=== PATIENT | female | born 1965 ===

== ENCOUNTER → 2023-07-02 | Outpatient (CLI) | payer OTHER ==
--- NOTE | 2023-07-02 11:18 | XR ---
EXAMINATION TYPE: XR chest 2V DATE OF EXAM: 07/02/2023 COMPARISON: NONE TECHNIQUE: PA and lateral views submitted. HISTORY: Preop FINDINGS: The lungs are clear and there is no pneumothorax, pleural effusion, or focal pneumonia. Heart size normal and no overt failure. Osseous structures demonstrate hypertrophic and degenerative changes of the spine. IMPRESSION: 1. No acute process.
[2023-07-02 15:51] LABS: Basophils # (A) 0.06 X 10*3/uL (0.00-0.10); Basophils % (A) 0.7 %; Eosinophils # (A) 1.32 X 10*3/uL (0.04-0.35); Eosinophils % (A) 16.3 %; HCT 47.2 % (37.2-46.3); HGB 15.5 g/dL (12.0-15.0); Lymphocytes # (A) 2.56 X 10*3/uL (0.90-5.00); Lymphocytes % (A) 31.7 %; MCH 29.3 pg (27.0-32.0); MCHC 32.8 g/dL (32.0-37.0); MCV 89.2 FL (80.0-97.0); Mean Platelet Volume 11.2 FL (9.5-12.2); Monocytes # (A) 0.51 X 10*3/uL (0.20-1.00); Monocytes % (A) 6.3 %; NRBC Per 100 WBC 0 X 10*3/uL (0.00-0.01); Neutrophils # (A) 3.61 X 10*3/uL (1.80-7.70); Neutrophils % (A) 44.8 %; Platelet Count 268 X 10*3/uL (140-440); RBC 5.29 X 10*6/uL (4.10-5.20); RDW 14.3 % (11.5-14.5); WBC 8.08 X 10*3/uL (4.50-10.00)
[2023-07-02 15:56] LABS: BUN/Creat Ratio 11.38 Ratio (12.00-20.00); Blood Urea Nitrogen 9.1 mg/dL (9.0-27.0); Calcium 9.9 mg/dL (8.7-10.3); Carbon Dioxide 25.7 mmol/L (21.6-31.8); Chloride 104 mmol/L (96-109); Glucose 92 mg/dL (70-110); Potassium 4.5 mmol/L (3.5-5.5); Sodium 143 mmol/L (135-145)
[2023-07-02 16:29] LABS: INR <0.93 sec (0.93-1.11); Prothrombin Time 9.8 sec (9.9-11.9)
== END | disposition home or self-care (01) ==
LOC: LABPAT 08:51
PROVIDERS: ATTEND Orthopaedic Surgery
DX: Z01.818 Encounter for other preprocedural examination (principal); M16.11 Unilateral primary osteoarthritis, right hip; Z22.322 Carrier or suspected carrier of Methicillin resistant Staphylococcus aureus
CPT/HCPCS: 36415; 71046; 80048; 85025; 85610; 87070; 93005

== ENCOUNTER → 2023-07-25 | Outpatient (CLI) | payer OTHER ==
[2023-07-25 23:36] LABS: Basophils # (A) 0.07 X 10*3/uL (0.00-0.10); Basophils % (A) 0.8 %; Eosinophils # (A) 1.07 X 10*3/uL (0.04-0.35); Eosinophils % (A) 11.8 %; HCT 46.8 % (37.2-46.3); HGB 15.3 g/dL (12.0-15.0); Lymphocytes # (A) 2.42 X 10*3/uL (0.90-5.00); Lymphocytes % (A) 26.7 %; MCH 28.6 pg (27.0-32.0); MCHC 32.7 g/dL (32.0-37.0); MCV 87.5 FL (80.0-97.0); Mean Platelet Volume 11.5 FL (9.5-12.2); Monocytes # (A) 0.72 X 10*3/uL (0.20-1.00); Monocytes % (A) 7.9 %; NRBC Per 100 WBC 0 X 10*3/uL (0.00-0.01); Neutrophils # (A) 4.77 X 10*3/uL (1.80-7.70); Neutrophils % (A) 52.5 %; Platelet Count 293 X 10*3/uL (140-440); RBC 5.35 X 10*6/uL (4.10-5.20); RDW 14.2 % (11.5-14.5); WBC 9.08 X 10*3/uL (4.50-10.00)
[2023-07-26 06:48] LABS: INR 0.93 sec (0.93-1.11); Prothrombin Time 10.1 sec (9.9-11.9)
[2023-07-26 07:25] LABS: BUN/Creat Ratio 10.62 Ratio (12.00-20.00); Blood Urea Nitrogen 8.5 mg/dL (9.0-27.0); Calcium 10.3 mg/dL (8.7-10.3); Carbon Dioxide 23.9 mmol/L (21.6-31.8); Chloride 104 mmol/L (96-109); Glucose 93 mg/dL (70-110); Potassium 4.4 mmol/L (3.5-5.5); Sodium 143 mmol/L (135-145)
== END | disposition home or self-care (01) ==
LOC: LABPAT 09:56
PROVIDERS: ATTEND Orthopaedic Surgery
DX: Z01.812 Encounter for preprocedural laboratory examination (principal); Z22.322 Carrier or suspected carrier of Methicillin resistant Staphylococcus aureus; M16.11 Unilateral primary osteoarthritis, right hip
CPT/HCPCS: 80048; 85025; 85610

== ENCOUNTER 2023-07-28 08:29 | Observation (INO) | payer OTHER ==
[2023-07-21 12:57] VITALS: BMI 28.3
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
[~2023-07-28 08:29] MED LIST: MIDAZOLAM 2 MG/2 ML VIAL IV PRN; TRANEXAMIC 1,000 MG/100ML-NACL 1,000 MG in SALINE 1 100ML.BAG IVPB PRN
[2023-07-28] MEDS: LACTATED RINGERS 1,000 ML IV SCH (08:46)
[2023-07-28] MEDS ORDERED: ACETAMINOPHEN TAB 500 MG TAB ONE (08:52)
[2023-07-28] MEDS: MIDAZOLAM 2 MG/2 ML VIAL IVP ONE ×2 (09:36)
[2023-07-28] MEDS: fentaNYL (PF) 50 MCG/ML 2 ML AMP IVP ONE (09:36)
--- NOTE | 2023-07-28 09:50 | P.ANPRN ---
Procedure Note - Anesthesia - Nerve Block Performed Right [place] Single Time Out Performed: Yes Date of Procedure: 07/28/23 Procedure Start Time: 09:35 Procedure Stop Time: 09:40 Location of Patient: PreOp Indication: Acute Post-Operative Pain, Analgesia, Requested by Surgeon Sedation Type: Sedate with meaningful contact maintained Preparation: Sterile Prep Position: Supine Catheter: None Needle Types: Pajunk Needle Gauge: 21 Ultrasound used to visualize needle placement: Yes Ultrasound used to observe medication spread: Yes Injectate: 0.5% Ropivacaine (see comment for volume) (Ropiv 20ml+decadron 4mg) Blood Aspirated: No Pain Paresthesia on Injection Noted: No Resistance on Injection: Normal Image Stored and Saved: Yes Events: Uneventful and Well Tolerated
[2023-07-28] MEDS: ACETAMINOPHEN TAB 500 MG TAB PO PRN (09:54)
[2023-07-28] MEDS: MELOXICAM 7.5 MG TAB PO PRN (09:54)
[2023-07-28] MEDS: ONDANSETRON 4 MG/2 ML VIAL IVP ONE (09:54)
[2023-07-28] MEDS: DEXAMETHASONE SOD PHOSPHATE 4 MG/ML 1 ML VIAL IV ONE (09:54)
[2023-07-28] MEDS ORDERED: MIDAZOLAM 2 MG/2 ML VIAL ONE (10:04)
[2023-07-28] MEDS ORDERED: DEXAMETHASONE SOD PHOSPHATE 4 MG/ML 1 ML VIAL ONE (10:04)
[2023-07-28] MEDS ORDERED: ePHEDrine 50 MG/ML 1 ML VIAL ONE (10:04)
[2023-07-28] MEDS ORDERED: LIDOCAINE 1% INJ 10MG/ML (20 ML MDV) ONE (10:04)
[2023-07-28] MEDS ORDERED: ROPIVACAINE 5 MG/ML 30 ML VIAL ONE (10:04)
[2023-07-28] MEDS ORDERED: TRANEXAMIC 1,000 MG/100ML-NACL PREMIX BAG ONE (10:04)
[2023-07-28] MEDS ORDERED: PROPOFOL 10 MG/ML 20 ML VIAL IV ONE (10:04)
[2023-07-28] MEDS ORDERED: KETAMINE HCL IN 0.9 % NACL 50 MG/5 ML SYRINGE ONE (10:04)
--- NOTE | 2023-07-28 10:24 | P.ANPRN ---
Procedure Note - Anesthesia - Epidural/Spinal Spinal Time Out Performed: Yes Date of Procedure: 07/28/23 Procedure Start Time: 10:10 Procedure Stop Time: 10:15 Location of Patient: OR Sedation Type: Sedate with meaningful contact maintained Preparation: Sterile Prep Position: Sitting Catheter: None Needle Guage: 22 Narrative: Bupivacain 11mg Blood Aspirated: No Pain Paresthesia on Injection Noted: No Events: Uneventful and Well Tolerated
[2023-07-28] MEDS: ceFAZolin 1,000 MG in SODIUM CHLORIDE 0.9% 1,000 ML IRRIGATION ONE (10:44)
[2023-07-28] MEDS: LACTATED RINGERS 1,000 ML IV ONE (11:04)
[2023-07-28] MEDS ORDERED: NALOXONE 0.4 MG/ML 1 ML VIAL IV PRN (12:06)
[2023-07-28] MEDS ORDERED: hydrOXYzine pamoate 25 MG CAP PO PRN (12:06)
[2023-07-28] MEDS ORDERED: HYDROmorphone 0.5 MG/0.5 ML SYRINGE IVP PRN (12:06)
[2023-07-28] MEDS ORDERED: MAGNESIUM HYDROXIDE 2,400 MG/30 ML CUP PO PRN (12:06)
--- NOTE | 2023-07-28 12:23 | P.OP ---
Date of Procedure: 07/28/23 Preoperative Diagnosis: Right hip severe osteoarthrosis Postoperative Diagnosis: Same Procedure(s) Performed: Right total hip arthroplastyanterior approach -press-fit Implants: Depuy Corail size 10 standard press-fit collared femoral stem, 36+1.5 ceramic femoral head, 52 mm [place] acetabular shell with neutral polyethylene liner. Anesthesia: regional, spinal Surgeon: Joe Mejia Almond Huller #1: Davis Pizano Estimated Blood Loss (ml): 200 Pathology: none sent Condition: stable Disposition: PACU Indications for Procedure: The patient is a 57-year-old female who presents with progressive right hip pain secondary to osteoporosis despite conservative measures. A discussion of the risks and benefits of operative intervention versus continued conservative measures was made with patient. She opted to proceed with surgery. Operative risks to include infection, neurovascular injury, development of blood clots, fracture, possible leg length discrepancy, possible component loosening/failure and possible need for subsequent procedures was discussed. Informed consent was obtained. Operative Findings: As below Description of Procedure: The patient was brought to the operating room, and after induction of spinal anesthesia was placed supine on the Anjelica table. Positioning was checked with fluoroscopy. The right hip was then prepped and draped in a normal fashion. A 12 cm incision was then made starting 2 fingerbreadths distal and 3 finger breaths posterior to the ASIS in line with the proximal femur. The skin was incised sharply. Subcutaneous tissues were divided sharply. Electrocautery was used for hemostasis. The fascia was split in line with skin incision. The interval between the sartorius and tensor fascia mat was then bluntly developed. The posterior fascia was opened with electrocautery. The lateral circumflex vessels were identified and cauterized prior to sectioning. A retractor was placed along the superior femoral neck as well as the anterior acetabular rim. A wide capsulotomy was performed. The neck cut was then made at a 45 angle to the shaft approximately 1 1/2 cm above the level of the lesser trochanter. The head was extracted. Attention was then paid towards preparing the acetabular. Anterior and posterior retractors were placed. The remaining capsular labral tissue sharply debrided clearly defining the acetabular margins. I began reaming with a 47 mm reamer taking care to initially medialize then reaming at 45 of abduction and 20 of anteversion. Sequential reaming is performed up to 51 mm. A trial to 52 mm acetabular shell was inserted in the same orientation and was fully seated. There was good rim fit and stability. Positioning was checked with fluoroscopy. The final 52 mm acetabular shell was inserted again at 45 of abduction and 20 of anteversion. This was fully seated. There was good rim fit and stability. Again fluoroscopy was used to check the adequacy of placement. A neutral polyethylene liner was gently impacted. Care was taken to avoid any soft tissue interposition. Pulsatile lavage was utilized. Attention was then paid towards preparing the proximal femur. The central region was cleared of soft tissue. A canal finder was used to find the femoral canal. Sequential broaching was performed up to size 10 taking care to lateralize proximally. A calcar mill was used to fashion the medial calcar. There was good rotational stability. A standard neck along with a 36 mm +1.5 head was placed. The hip was gently reduced. Fluoroscopy was used to check the adequacy of positioning along with leg lengths. I felt both were good. The hip was gently dislocated. The trial components were removed. The final size 10 collared standard press-fit femoral stem was inserted parallel to the posterior cortex. This was fully seated and there was good rotational stability. A 36 mm was 1.5 ceramic femoral head was placed. This was gently impacted. The hip was then gently reduced. Final fluoroscopic view showed adequate placement implant along with adventist of leg length. Stability was checked with 80 of external rotation and 60 of extension of the right hip. The wound was irrigated with sterile lavage. The fascia was closed with running 0 Vicryl suture. There was minimal drainage therefore a deep drain was not placed. The second dose of IV TXA was given. The subcutaneous tissues were reapproximated interrupted 2-0 Vicryl sutures. The skin was reapproximated with 3-0 subcuticular strata fix suture. Skin tape and adhesive was applied. A sterile dressing was applied. The patient was then awoken from sedation and transferred to recovery room in good condition. Blood loss was estimated at 200. mL. No complications were incurred. Sponge and needle counts were correct at the end of the case. Davis JOHNSON assisted during the major components is case to include exposure, bone resection, implantation, and closure.
[2023-07-28] MEDS: HYDROmorphone 0.5 MG/0.5 ML SYRINGE IVP PRN (12:31)
--- NOTE | 2023-07-28 12:57 | XR ---
EXAMINATION TYPE: XR Hip Limited RT DATE OF EXAM: 07/28/2023 COMPARISON: NONE HISTORY: Post op TECHNIQUE: One view submitted. FINDINGS: There is postsurgical change compatible hip replacement surgery. IMPRESSION: 1. Postoperative change.
--- NOTE | 2023-07-28 12:58 | XR ---
EXAMINATION TYPE: XR Hip Limited RT DATE OF EXAM: 07/28/2023 COMPARISON: NONE HISTORY: Right anterior hip replacement TECHNIQUE:- 5 view submitted. FINDINGS: There is postsurgical change compatible hip replacement surgery. IMPRESSION: 1. Postoperative change.
--- NOTE | 2023-07-28 13:14 | FL ---
EXAMINATION TYPE: FL guidance operating room DATE OF EXAM: 07/28/2023 HISTORY: Fluoroscopy time Total dose area product (DAP) in uGy*m?, mGy*cm? (or similar): 1.0346 IMPRESSION: 1. Fluoroscopy time.
[2023-07-28] MEDS: SCOPOLAMINE 1 MG/72 HR PATCH TRANSDERM ONE (14:18)
[2023-07-28] MEDS: HYDROmorphone 1 MG/ML 1 ML SYRINGE IVP PRN (14:38)
[2023-07-28] MEDS: HYDROcodone/APAP 5-325MG 1 EACH TAB PO PRN (16:38)
[2023-07-28] MEDS ORDERED: ALPRAZolam 0.5 MG TAB PO PRN (17:33)
--- NOTE | 2023-07-28 17:34 | P.CONS ---
History of Present Illness - Reason for Consult Consult date: 07/28/23 Medical management Requesting physician: Joe Mejia - History of Present Illness History of Presenting Illness: Patient is a 57-year-old female with a past medical history of Raynaud's disease, nicotine dependence, daily cannabis use, anxiety, and osteoarthritis. She is currently admitted under orthopedic surgery team status post elective right total hip arthroplasty secondary to severe osteoarthrosis. Surgical procedure was completed by Dr. Mejia. We have been consulted for medical management throughout hospitalization. Patient seen and fully evaluated in room 472. Family at bedside visiting. Patient appeared very anxious and fidgety. She currently reports pain is the same as it was before her surgery. Patient was educated that there are pain medications available and if they are not helping to please speak up as changes can be made to current medication regimen. Patient denies having any numbness or tingling, denies headache, lightheadedness, dizziness, chest pain, palpitations, shortness of breath, or any other complaints. She denies having postoperative nausea or vomiting. She does report she has not yet urinated in postoperative period. She denies history of DVT or PE. Review of systems: Pertinent positives and negatives as discussed in HPI, a complete review of systems was performed and all other systems are negative. Physical exam: Vital signs reviewed and stable. General: Nontoxic, no distress and appears stated age. Derm: Skin warm and dry, normal coloration for ethnicity. Head: Atraumatic, normocephalic and symmetric. Eyes: EOMs intact, no lid lag, and anicteric sclera Mouth: no lip lesions, mucus membranes moist Cardiovascular: regular rate and rhythm with normal S1S2, no murmur, positive posterior tibial pulses bilaterally, and cap refill < 2 seconds. Lungs: Respirations even, regular, and unlabored on room air. Lungs CTA bilaterally, no rhonchi, no rales, no wheezing, and no accessory muscle usage. Abdominal: soft, nontender to palpation, no guarding, no appreciable organomegaly Ext: ROM intact. No gross muscle atrophy, no edema, no contractures Neuro: Speech clear, face symmetrical and CN II-XII grossly intact with no noted focal neuro deficits Psych: Alert and oriented to person, place, time, and situation. Patient appears anxious. Assessment and Plan of Care: Status post right total hip arthroplasty Severe osteoarthrosis of right hip Management by primary admitting orthopedic surgery team including DVT prophylaxis, pain management, wound/dressing care, weightbearing, and PT/OT. Currently DVT prophylaxis with Xarelto 10 mg daily. Order placed for postoperative labs including CBC, CMP, and magnesium. Will follow-up with these results and place additional orders as indicated based upon these findings. Postoperative urinary retention Order placed for bladder scan to monitor for postvoid residuals. Straight cath if needed for postvoid residual or urinary retention greater than or equal to 400 cc. Anxiety Order placed for Xanax 0.5 mg twice daily as needed for anxiety. Nicotine dependence Daily cannabinoid use -Recommend cessation of use. Order placed for nicotine patch 21 mg daily. Data reviewed: Vital signs reviewed. Blood pressure 116/73, heart rate 60, respiratory rate 1 6, temp 97.4 F, and SpO2 of 98% on room air. Thank you for allowing us to participate in the care of this pleasant patient. Do not hesitate to contact us with questions. Someone can be reached from the [facility] all hours of the day at [phone] or via [employer]. Patient was seen independently by Nurse Practitioner. This document was prepared using [employer] dictation software. Please allow for errors in media production support manager while rare they do occur. I reviewed the documentation as provided by the LUMA above, who is the original author of this note. I agree with the documented assessment and plan, with the following changes: none Past Medical History Past Medical History: Osteoarthritis (OA) Additional Past Medical History / Comment(s): raynuads disease History of Any Multi-Drug Resistant Organisms: None Reported Past Surgical History: No Surgical Hx Reported Additional Past Surgical History / Comment(s): right hip 07/28/23 Past Anesthesia/Blood Transfusion Reactions: No Reported Reaction Additional Past Anesthesia/Blood Transfusion Reaction / Comm: NO PRIOR ANESTHESIA. FAMILY HX UNKNOWN-ADOPTED Past Psychological History: Anxiety, PTSD Additional Psychological History / Comment(s): NO MEDS NEEDED AT THIS TIME Smoking Status: Current some day smoker Past Alcohol Use History: Occasional Additional Past Alcohol Use History / Comment(s): SMOKING 4-5 CIGARETTES DAILY OFF AND ON SINCE LAST YEAR Past Drug Use History: Marijuana Additional Drug Use History / Comment(s): USES MARIJUANA DAILY FOR PAIN- INSTRUCTED TO REFRAIN FROM USE FOR AT LEAST 24 HOURS PRIOR TO PROCEDURE - Past Family History Mother Family Medical History: Unable to Obtain Additional Family Medical History / Comment(s): PT ADOPTED, FAMILY HX UNKNOWN Medications and Allergies Home Medications Medication Instructions Recorded Confirmed Type Acetaminophen [Tylenol Extra 1,000 mg PO Q8HR PRN 07/21/23 07/21/23 History Strength] Ibuprofen [Advil] 400 mg PO Q8HR PRN 07/21/23 07/21/23 History Apixaban [Eliquis] 2.5 mg PO BID #60 tab 07/29/23 Rx HYDROcodone/APAP 7.5-325MG [[place] 1 - 2 tab PO Q6HR PRN #32 tab 07/29/23 Rx 7.5-325] Sennosides/Docusate Sodium [Senna 1 each PO DAILY #20 capsule 07/29/23 Rx Plus 8.6-50 mg Softgel] Allergies Allergy/AdvReac Type Severity Reaction Status Date / Time No Known Allergies Allergy Verified 07/28/23 09:12 Physical Exam Vitals: Vital Signs Temp Pulse Resp BP Pulse Ox 07/28/23 13:30 56 L 14 112/54 96 07/28/23 13:02 63 16 128/66 95 07/28/23 12:48 56 L 16 106/61 97 07/28/23 12:32 70 16 102/63 95 07/28/23 12:17 97.1 F L 73 16 108/65 92 L 07/28/23 09:53 68 16 119/85 100 07/28/23 09:11 98 F 75 16 120/78 100 Intake and Output 07/27/23 07/28/23 07/28/23 22:59 06:59 14:59 Intake Total 751 Balance 751 Intake: IV 751 Other: Weight 89.1 kg Results CBC & Chem 7: 07/29/23 05:11 07/29/23 05:11
[2023-07-28] MEDS: NICOTINE 21MG/24HR PATCH TRANSDERM SCH (18:35)
[2023-07-28] MEDS: SENNOSIDES-DOCUSATE SODIUM 1 EACH TAB PO SCH (19:41)
[2023-07-28] MEDS: HYDROcodone/APAP 7.5-325MG 1 EACH TAB PO PRN (22:26)
[2023-07-29 06:00] LABS: ALT 23 U/L (4-34); AST 30 U/L (14-36); African American GFR (CKD) >90 (>60 ml/min/1.73 sqM); Albumin 3.8 g/dL (3.5-5.0); Albumin/Globulin Ratio 1.4; Alkaline Phosphatase 64 U/L (38-126); Anion Gap 7 mmol/L; Blood Urea Nitrogen 7 mg/dL (7-17); Calcium 8.9 mg/dL (8.4-10.2); Carbon Dioxide 26 mmol/L (22-30); Chloride 105 mmol/L (98-107); Globulin 2.7 g/dL; Glucose 102 mg/dL (74-99); Magnesium 1.9 mg/dL (1.6-2.3); Non-African American GFR(CKD) >90 (>60 ml/min/1.73 sqM); Sodium 138 mmol/L (137-145); Total Bilirubin 0.5 mg/dL (0.2-1.3); Total Protein 6.5 g/dL (6.3-8.2)
[2023-07-29] MEDS: RIVAROXABAN 10 MG TAB PO SCH (08:17)
[2023-07-29 08:18] VITALS: BP 102/64; PULSE 57; RESP 18; TEMP 98.2
[2023-07-29 08:46] LABS: Basophils # (A) 0.02 X 10*3/uL (0.00-0.10); Basophils % (A) 0.2 %; Eosinophils # (A) 0.02 X 10*3/uL (0.04-0.35); Eosinophils % (A) 0.2 %; HCT 37.9 % (37.2-46.3); HGB 12.9 g/dL (12.0-15.0); Lymphocytes # (A) 1.93 X 10*3/uL (0.90-5.00); Lymphocytes % (A) 17.5 %; MCH 29.7 pg (27.0-32.0); MCV 87.1 FL (80.0-97.0); Monocytes # (A) 1.11 X 10*3/uL (0.20-1.00); Monocytes % (A) 10.1 %; NRBC Per 100 WBC 0 X 10*3/uL (0.00-0.01); Neutrophils # (A) 7.88 X 10*3/uL (1.80-7.70); Neutrophils % (A) 71.5 %; Platelet Count 278 X 10*3/uL (140-440); RBC 4.35 X 10*6/uL (4.10-5.20); RDW 14.5 % (11.5-14.5); WBC 11.01 X 10*3/uL (4.50-10.00)
--- NOTE | 2023-07-29 10:02 | P.DS ---
Providers Date of admission: 07/28/2023 Expected date of discharge: 07/29/23 Attending physician: Joe Mejia Consults: 07/28/23 12:06 Consult Physician Routine Consulting Provider: Anish Barahona Consult Reason/Comments: medical management s/p direct anterior right total hip arthroplasty Do you want consulting provider notified?: Yes Primary care physician: Stated None Hospital Course: Date of admission: 07/28/2023 Date of discharge: 07/29/2023 Admission diagnosis: Right hip osteoarthritis Discharge diagnosis: Same Attending physician: Dr. Mejia Surgical procedures: Right total hip arthroplasty Brief history: Patient is a 57-year-old female with a history of progressive primary right hip osteoarthritis. At this point patient has failed conservative treatment measures and has opted to proceed with a elective right total hip arthroplasty. Hospital course: Details of patient's surgery can be found in operative report. Patient tolerated the procedure well and was subsequently transported to orthopedic floor. Patient's orthopeidc and medical care was provided daily. Patient had daily laboratory tests performed for evaluation of overall blood co unts. Patient had daily physical therapy to include strengthening range of motion as well as education with walker ambulation. Patient was treated with Xarelto for their postoperative DVT prophylaxis during their inpatient stay. Patient was noted to have a relatively uneventful postoperative course. Patient reported satisfactory pain control with oral pain medications by postoperative day 1. Patient showed satisfactory progress with physical therapy. Patient moved steadily through the program and had no difficulty meeting the goals by postoperative day 1. Given patient's otherwise satisfactory course and having met physical therapy goals, plan is to discharge patient home with health services on postoperative day 1. Discharge condition/disposition: Patient will be discharged home with health services in stable condition. Discharge medications: Instructions are given on resumption of patient's normal daily medications per primary care recommendation, in addition patient will be prescribed senna; [place]; Eliquis 2.5 mg twice a day 2 weeks. Discharge instructions: 1. Wound care and infection precautions, keep incision dry and covered while showering, no lotions, creams, moisturizers. No soaking, tubs, pools, hottubs. Do not scrub over the incision. 2. Weight-bear as tolerated with walker / cane until follow-up. 3. Ice and elevate when necessary. Do not exceed 20 minutes per hour with ice pack. 4. Utilize compression sleeve until seen at first follow up appointment. 5. Visiting nursing care. 6. Home physical therapy. 7. Pain meds and anticoagulants per prescription. 8. Pain medication has potential to cause constipation. Increase oral fluid and fiber intake. Contact primary care provider if you have not had a bowel movement within 48 hours after discharge 9. No anti-inflammatory medication until discussed at first post operative visit, this including Motrin, Aleve, Mobic, Diclofenac.. 10. Follow up in office at 2 weeks postop with Chago Banda PA-C / Davis Pizano PA-C 11. Follow up with your primary care doctor 7-10 days after discharge. 12. Contact [facility] with any questions, . Assessment: Right hip osteoarthritis Procedures: Right total hip arthroplasty Patient Condition at Discharge: Good Plan - Discharge Summary Discharge Rx Participant: Yes New Discharge Prescriptions: No Action Ibuprofen [Advil] 400 mg PO Q8HR PRN PRN Reason: Pain Acetaminophen [Tylenol Extra Strength] 1,000 mg PO Q8HR PRN PRN Reason: Pain Discharge Medication List Acetaminophen [Tylenol Extra Strength] 1,000 mg PO Q8HR PRN 07/21/23 [History] Ibuprofen [Advil] 400 mg PO Q8HR PRN 07/21/23 [History] Follow up Appointment(s)/Referral(s): Davis Pizano PAC [PHYSICIAN RUNNING INSTRUCTOR] - 2 Weeks [facility], [NON-STAFF] - As Needed Patient Instructions/Handouts: Anterior Hip Replacement (DC), Anterior Hip Replacement (GEN) Activity/Diet/Wound Care/Special Instructions: Orthopedic Discharge Instructions: 1. Wound care and infection precautions, keep incision dry and covered while showering, no lotions, creams, moisturizers. No soaking, pools, hot tubs. Do not scrub over incision. 2. Weight-bear as tolerated with walker / cane until follow-up. 3. Ice and elevate when necessary. Do not exceed 20 minutes per hour with ice pack. 4. Utilize compression sleeve until seen at first follow up appointment. 5. Pain meds and anticoagulants per prescription. 6. Pain medication has potential to cause constipation. Increase oral fluid and fiber intake. Contact primary care provider if you have not had a bowel movement within 48 hours after discharge. 7. No anti-inflammatory medication until discussed at first post operative visit, this including Motrin, Aleve, Mobic, Diclofenac. 8. Follow up in office at 2 weeks postop with Chago Banda PA-C / Davis Pizano PA-C 9. Follow up with your primary care doctor 7-10 days after discharge. 10. Contact [facility] with any questions, . Keep incision clean, dry, intact. While showering, cover fusion tape with Saran wrap. Keep fusion tape on until follow-up appointment in office in 2 weeks Discharge Disposition: HOME WITH HOME HEALTH SERVICES
--- NOTE | 2023-07-29 10:40 | P.PN ---
Subjective Progress Note Date: 07/29/23 Principal diagnosis: Right hip osteoarthritis Patient was seen at bedside this morning lying in the left lateral recumbent position with dressing present over right anterior hip. Patient says she worked with therapy this morning and walked down the hallway using walker. Patient says she walked up-and-down stairs. Patient says she does need a walker for home. Patient says she has been up several times since surgery yesterday. She says she has urinated without issue. Patient says she has not had a bowel movement yet. Patient denies chest pain, fever, shortness breath, nausea, vomiting, change in vision, loss of bowel/bladder control. Objective - Vital Signs Vital signs: Vital Signs Temp 98.2 F 07/29/23 07:46 Pulse 57 L 07/29/23 07:46 Resp 18 07/29/23 07:46 BP 102/64 07/29/23 07:46 Pulse Ox 96 07/29/23 07:46 FiO2 Intake & Output 07/28/23 07/29/23 07/29/23 18:59 06:59 18:59 Intake Total 751 Output Total 500 Balance 251 Weight 89.1 kg Intake: IV 751 Output: Urine 500 Other: Voiding Method Toilet # Voids 0 2 - Exam Right hip: Incision is clean, dry, and intact. The exofin fusion tape is in good condition. There is minimal soft tissue swelling and ecchymosis surrounding the medial and lateral aspects of the incision. Calf is soft, no tenderness with palpation. Plantar flexion, dorsiflexion, EHL, FHL are intact. Sensory exam to light touch throughout the extremity is intact, dorsal pedis pulses 2+. - Labs CBC & Chem 7: 07/29/23 05:11 07/29/23 05:11 Labs: Abnormal Lab Results - Last 24 Hours (Table) 07/29/23 07/29/23 Range/Units 05:11 05:11 WBC 11.01 H (4.50-10.00) X 10*3/uL Immature Gran # 0.05 H (0.00-0.04) X 10*3/uL Neutrophils # 7.88 H (1.80-7.70) X 10*3/uL Monocytes # 1.11 H (0.20-1.00) X 10*3/uL Eosinophils # 0.02 L (0.04-0.35) X 10*3/uL Glucose 102 H (74-99) mg/dL Assessment and Plan Assessment: 1. Right hip osteoarthritis - Postoperative day 1 status post right total hip arthroplasty Plan: 1. Right hip osteoarthritis - right total hip arthroplasty performed yesterday, 07/28/2023. Patient stable at bedside this morning. Prescription for walker was signed. Patient did do well with therapy this morning. Discharge home today with health services. 2. Appreciate medical management 3. Pain management - [place] 4. DVT prophylaxis - Xarelto in hospital. Going home with eloquence 2.5 mg twice a day 2 weeks 5. GI prophylaxis - senna 6. PT/OT - weightbearing as tolerated with walker 7. Encourage incentive spirometer use 8. Discharge planning - home today with health services Time with Patient: Less than 30
--- NOTE | 2023-07-29 14:16 | P.PN ---
Subjective Progress Note Date: 07/29/23 Hospital course: Patient is a 57-year-old female with a past medical history of Raynaud's disease, nicotine dependence, daily cannabis use, anxiety, and osteoarthritis. She is currently admitted under orthopedic surgery team status post elective right total hip arthroplasty secondary to severe osteoarthrosis. Surgical procedure was completed by Dr. Mejia. We have been consulted for medical management throughout hospitalization. Physical exam: Patient seen and fully evaluated at bedside this morning. She is postoperative day 1 and appears to be doing well. Patient reports she worked with physical therapy and denies having any difficulties. She does report moderate postoperative pain otherwise denies any complaints. She denies any headache, lightheadedness, dizziness, chest pain, palpitations, shortness of breath, or experiencing any numbness/tingling/weakness in her extremities. She reports urinating without difficulties and tolerating oral intake without any episodes of nausea or vomiting. Vital signs reviewed and stable. General: Nontoxic, no acute distress and appears stated age. Derm: Skin warm and dry, normal coloration for ethnicity. Head: Atraumatic, normocephalic and symmetric. Eyes: EOMs intact, no lid lag, and anicteric sclera Mouth: no lip lesions, mucus membranes moist Cardiovascular: regular rate and rhythm with normal S1S2, no murmur, positive posterior tibial pulses bilaterally, and cap refill < 2 seconds. Lungs: Respirations even, regular, and unlabored on room air. Lungs CTA bilaterally, no rhonchi, no rales, no wheezing, and no accessory muscle usage. Abdominal: soft, nontender to palpation, no guarding, no appreciable organomegaly Ext: ROM intact. No gross muscle atrophy, no edema, no contractures Neuro: Speech clear, face symmetrical and CN II-XII grossly intact with no noted focal neuro deficits Psych: Alert and oriented to person, place, time, and situation. Patient pleasant and cooperative, appropriate affect. Assessment and Plan of Care: Postoperative leukocytosis Status post right total hip arthroplasty Severe osteoarthrosis of right hip CBC showing mild postoperative leukocytosis with WBC count of 11.01, reactive secondary to surgery and expected finding, no signs of infection. Management by primary admitting orthopedic surgery team including DVT prophylaxis, pain management, wound/dressing care, weightbearing, and PT/OT. Currently DVT prophylaxis with Xarelto 10 mg daily. Order placed for postoperative labs including CBC, CMP, and magnesium. Will follow-up with these results and place additional orders as indicated based upon these findings. Postoperative urinary retention, resolved Anxiety Order placed for Xanax 0.5 mg twice daily as needed for anxiety. Nicotine dependence Daily cannabinoid use -Recommend cessation of use. Order placed for nicotine patch 21 mg daily. Data reviewed: -Vital signs reviewed and stable. Blood pressure 102/64, heart rate 57, respiratory rate 18, temp 98.2 F, and SpO2 of 96% on room air. -Labs completed and reviewed. CBC showing mild postoperative leukocytosis with WBC count of 11.01. BMP was unremarkable. Magnesium normal findings at 1.9. Liver profile unremarkable. Patient medically optimized and cleared for discharge once cleared by primary admitting orthopedic surgery team. Thank you for allowing us to participate in the care of this pleasant patient. Do not hesitate to contact us with questions. Someone can be reached from the [facility] all hours of the day at [phone] or via [email or web address]. Patient was seen independently by Nurse Practitioner. This document was prepared using [employer] dictation software. Please allow for errors in station cook while rare they do occur. I reviewed the documentation as provided by the LUMA above, who is the original author of this note. I agree with the documented assessment and plan, with the following changes: none Objective - Vital Signs Vital signs: Vital Signs Temp 98.2 F 07/29/23 07:46 Pulse 57 L 07/29/23 07:46 Resp 18 07/29/23 07:46 BP 102/64 07/29/23 07:46 Pulse Ox 96 07/29/23 07:46 FiO2 Intake & Output 07/28/23 07/29/23 07/29/23 18:59 06:59 18:59 Intake Total 751 Output Total 500 Balance 251 Weight 89.1 kg Intake: IV 751 Output: Urine 500 Other: Voiding Method Toilet # Voids 0 2 - Labs CBC & Chem 7: 07/29/23 05:11 07/29/23 05:11 Labs: Abnormal Lab Results - Last 24 Hours (Table) 07/29/23 Range/Units 05:11 Glucose 102 H (74-99) mg/dL
== END 2023-07-29 12:23 | disposition home health service (06) ==
LOC: OR 08:29 → 4SSUR 12:12 → OR 12:12 → 4SSUR 12:12
PROVIDERS: ADMIT Orthopaedic Surgery; ATTEND Orthopaedic Surgery
DX: M16.11 Unilateral primary osteoarthritis, right hip (principal); F17.210 Nicotine dependence, cigarettes, uncomplicated; I73.00 Raynaud's syndrome without gangrene; F12.90 Cannabis use, unspecified, uncomplicated; F41.9 Anxiety disorder, unspecified; F43.10 Post-traumatic stress disorder, unspecified; M81.0 Age-related osteoporosis without current pathological fracture; Z79.01 Long term (current) use of anticoagulants; Z79.899 Other long term (current) drug therapy; Z79.1 Long term (current) use of non-steroidal anti-inflammatories (NSAID); Z79.891 Long term (current) use of opiate analgesic
CPT/HCPCS: 27130; 97161; 97166; 64447; 86900; 86901; 80053; 83735; 85025; 86850; 73501; G0378 ×2; C1776; J2250; J1100; J0690 ×3; J2405; J2001; J3010; J1170 ×3; J2795; J2704; 96365; 96366; 96367; 96376